=== PATIENT | female | born 1990 | race Two or more races ===

== ENCOUNTER 2017-08-11 08:47 | Outpatient (CLI) | payer OTHER | END 2017-08-11 09:25 | disposition home or self-care (01) | LOC: RX STUDY 08:47 | DX: N96 Recurrent pregnancy loss (principal) ==

== ENCOUNTER 2017-08-17 06:16 | Outpatient (CLI) | payer OTHER | END 2017-08-17 08:14 | disposition home or self-care (01) | LOC: LAB 06:16 | DX: N92.4 Excessive bleeding in the premenopausal period (principal) ==

== ENCOUNTER 2024-08-08 08:08 | Outpatient (CLI) | payer OTHER | END 2024-08-08 08:09 | disposition home or self-care (01) | LOC: PRENATAL 08:08 | PROVIDERS: ATTEND Obstetrics & Gynecology Maternal & Fetal Medicine | DX: Z76.1 Encounter for health supervision and care of foundling (principal) ==

== ENCOUNTER 2025-02-04 10:19 | Outpatient (CLI) | payer OTHER ==
[~2025-02-04 10:19] MED LIST: METFORMIN HCL500 M3 PO
[2025-02-04 11:52] LABS: INR 1.0
== END 2025-02-04 10:48 | disposition home or self-care (01) ==
LOC: LAB 10:19
DX: C50.112 Malignant neoplasm of central portion of left female breast (principal); R16.0 Hepatomegaly, not elsewhere classified; C22.0 Liver cell carcinoma; R91.8 Other nonspecific abnormal finding of lung field; D14.30 Benign neoplasm of unspecified bronchus and lung

== ENCOUNTER 2025-02-11 05:38 | Day surgery (SDC) | payer OTHER ==
[2025-02-04 09:34] VITALS: BP 119/79
[2025-02-04 09:34] LABS: URINE APPEARANCE Clear; URINE BILIRRUBIN Negative (NEGATIVE); URINE BLOOD Negative; URINE COLOR Yellow; URINE GLUCOSE Negative (NEGATIVE); URINE KETONE Negative (NEGATIVE); URINE LEUKOCYTE Negative; URINE NITRATE Negative; URINE PROTEIN Negative (NEGATIVE); URINE UROBILINOGEN 0.2 E.U./dl
[2025-02-04 09:36] LABS: URINE BACTERIA 179.9 uL (0.0-1933); URINE EPITHELIAL CELLS 41.0 uL (0.0-38.8); URINE RBC 5.8 uL (0.0-20.8); URINE WBC 9.9 uL (0.0-23.2)
[2025-02-04 09:41] LABS: BASO % 0.5 % (0.1-1.2); EOS # 0.08 (0.04-0.54); EOS % 1.0 % (0.7-7.0); LYMPH # 2.49 (1.18-3.74); LYMPH % 31.2 % (19.3-53.1); MEAN PLATELET VOLUME 10.20 fl (9.4-12.4); MONO # 0.33 (0.24-0.82); MONO % 4.1 % (4.7-12.5); NEUT # 4.99 (1.56-6.13); NEUT % 62.7 % (34.0-71.1); RED CELL DISTRIBUTION WIDTH 11.9 % (11.6-14.4)
[2025-02-04 10:20] LABS: ALT/SGPT 26.0 U/L (12-78); AST/SGOT 16.0 U/L (15-37); BILIRUBIN TOTAL 0.31 mg/dL (0.3-1.2); BUN CREA RATIO 29.0 (7.0-25.0); CREATININE SERUM 0.48 mg/dL (0.55-1.02); GFR 148.94; GLOBULINA 3.7 G/DL (2.4-3.5); GLUCOSE FASTING 83.0 mg/dL (65-100); OSMOLALITY SERUM 281.0 MOSM/KG (275-295)
[2025-02-04 10:40] LABS: URINE CAST 0.29 uL (0.0-1.40)
[~2025-02-11] VITALS: Ht 177.8 cm; Wt 127.0 kg
[2025-02-11] MEDS ORDERED: POVIDONE-IODINE 118 ML BOTT TOP ONE ×2 (11:15→12:30)
[2025-02-11] MEDS ORDERED: PROMETHAZINE HCL 50 MG/ML AMPUL IM ONE (13:15)
[2025-02-11] MEDS ORDERED: MORPHINE SULFATE 4 MG/ML VIAL IV PRN (13:15)
== END 2025-02-11 16:50 | disposition home or self-care (01) ==
LOC: CIR.AMB 05:38
PROVIDERS: ATTEND Obstetrics & Gynecology
DX: N84.0 Polyp of corpus uteri (principal); N93.8 Other specified abnormal uterine and vaginal bleeding; Z88.2 Allergy status to sulfonamides; Z91.013 Allergy to seafood

== ENCOUNTER 2025-04-01 07:18 | Outpatient (CLI) | payer OTHER | END 2025-04-01 07:22 | disposition home or self-care (01) | LOC: RAD 07:18 → TOM 07:18 → RAD 07:22 | PROVIDERS: ATTEND Obstetrics & Gynecology Reproductive Endocrinology | DX: E28.8 Other ovarian dysfunction (principal) ==